=== PATIENT | female | born 1970 | race Hispanic/Latino ===

== ENCOUNTER → 2018-09-05 | Outpatient (CLI) | payer SELFPAY | END | disposition home or self-care (01) | LOC: RAH 09:52 | PROVIDERS: ATTEND Physical Medicine & Rehabilitation | DX: S83.281A Other tear of lateral meniscus, current injury, right knee, initial encounter (principal); M25.562 Pain in left knee; X58.XXXA Exposure to other specified factors, initial encounter; Y93.89 Activity, other specified; Y92.89 Other specified places as the place of occurrence of the external cause; Y99.8 Other external cause status | CPT/HCPCS: 73721 ==

== ENCOUNTER → 2022-08-21 | Outpatient (CLI) | payer BC | END | disposition home or self-care (01) | LOC: RAH 13:09 | PROVIDERS: ATTEND Obstetrics & Gynecology | DX: Z12.31 Encounter for screening mammogram for malignant neoplasm of breast (principal); Z01.419 Encounter for gynecological examination (general) (routine) without abnormal findings; Z01.411 Encounter for gynecological examination (general) (routine) with abnormal findings; N92.0 Excessive and frequent menstruation with regular cycle; N83.02 Follicular cyst of left ovary | CPT/HCPCS: 76830; 77067 ==